=== PATIENT | female | born 1980 | race Hispanic/Latino ===

== ENCOUNTER 2017-07-16 12:35 | Observation (INO) | payer BC, OTHER ==
[~2017-07-16] VITALS: Ht 160 cm; Wt 83.9 kg
[~2017-07-16 12:35] MED LIST: TYL3 GT
[2017-07-16 13:59] LABS: APPEARANCE,URINE Cloudy (CLEAR); BILIRUBIN,URINE Negative (NEGATIVE); COLOR,URINE Dark Yellow (YELLOW); GLUCOSE, URINE (UA) Negative (NEGATIVE); KETONES,URINE Trace mg/dL (NEGATIVE); LEUKOCYTE ESTERASE ,URINE Negative (NEGATIVE); NITRATE,URINE Negative (NEGATIVE); OCCULT BLOOD,URINE Small (NEGATIVE); PH,URINE 5.5 (5.0-8.0); PROTEIN,URINE POS 1+ (NEGATIVE)
[2017-07-16 14:04] LABS: HCG,QUAL RESULT NEGATIVE (NEGATIVE)
[2017-07-16 14:07] LABS: BASOPHILS % (AUTO) 0.2 % (0.0-5.0); EOSINOPHILS % (AUTO) 0.1 % (0.0-8.0); HEMATOCRIT 40.5 % (36-48); LYMPHOCYTES % (AUTO) 6.9 % (21.0-51.0); MEAN CORPUSCULAR HEMOGLOBIN 25.6 pg (27.0-33.0); MEAN CORPUSCULAR HGB CONC 32.4 g/dL (32.0-36.0); NEUTROPHILS % (AUTO) 89.8 % (40.0-77.0); PLATELET COUNT (AUTO) 366 K/uL (130-400); RED BLOOD CELL COUNT(AUTO) 5.12 MIL/uL (4.00-5.50); RED CELL DISTRIBUTION WIDTH 15.1 % (11.0-15.5)
[2017-07-16] MEDS ORDERED: ONDANSETRON HCL MDV 20ML 2 MG/ML VIAL ONE (14:10)
[2017-07-16] MEDS ORDERED: KETOROLAC TROMETHAMINE 30MG/ML ONE (14:10)
[2017-07-16] MEDS ORDERED: SODIUM CHLORIDE 0.9% 1000ML 1,000 ML IV ONE (14:10)
[2017-07-16 14:11] LABS: BACTERIA,URINE Moderate /HPF (None Seen); RBC,URINE 0-1 /HPF (0-1); SQUAMOUS EPITHELIAL CELL,UR 0-2 /HPF (0-2); WBC,URINE None Seen /HPF (0-1)
[2017-07-16 14:12] LABS: AMORPHOUS SEDIMENT,UR Few /LPF (None Seen); MUCUS,URINE Many LPF (None Seen)
[2017-07-16 14:22] LABS: CREATININE 0.8 mg/dL (0.5-1.5)
[2017-07-16 14:28] LABS: BILIRUBIN,TOTAL 0.2 mg/dL (0.2-1.0)
[2017-07-16] MEDS ORDERED: MORPHINE SULFATE 4 MG/1ML SYG ONE (15:40)
[2017-07-16] MEDS ORDERED: ONDANSETRON HCL 4 MG/2 ML VIAL IVP PRN (18:00)
[2017-07-16] MEDS ORDERED: POTASSIUM CHLORIDE 10% ELIXIR 20 MEQ/15 ML UDCUP PO PRN (19:45)
[2017-07-16] MEDS ORDERED: POTASSIUM CHLORIDE 20 MEQ ERTAB PO PRN (19:45)
[2017-07-16] MEDS ORDERED: FAMOTIDINE/PF 20 MG/2 ML VIAL IV SCH (19:45)
[2017-07-16] MEDS ORDERED: POTASSIUM CHLORIDE 20MEQ/100ML 100 ML IV PRN (19:45)
[2017-07-16] MEDS ORDERED: LIDOCAINE HCL-MPF 1% 2ML VIAL IVP PRN (19:45)
[2017-07-16 21:15] VITALS: BP 127/79
[2017-07-16 21:22] VITALS: BP 127/79
[2017-07-16] MEDS: SODIUM CHLORIDE 0.9% 1000ML 1,000 ML IV SCH (21:34)
[2017-07-16] MEDS: ZOSYN 3.375GM+NS 50ML 50 ML IV SCH (22:11)
[2017-07-17 00:27] VITALS: BP 120/67
[2017-07-17 03:34] VITALS: BP 116/80
[2017-07-17 04:34] LABS: BASOPHILS % (AUTO) 0.6 % (0.0-5.0); EOSINOPHILS % (AUTO) 1.2 % (0.0-8.0); LYMPHOCYTES % (AUTO) 26.1 % (21.0-51.0); MEAN CORPUSCULAR HEMOGLOBIN 25.8 pg (27.0-33.0); MEAN CORPUSCULAR HGB CONC 32.7 g/dL (32.0-36.0); MONOCYTES % (AUTO) 8.8 % (3.0-13.0); NEUTROPHILS % (AUTO) 63.3 % (40.0-77.0); PLATELET COUNT (AUTO) 288 K/uL (130-400)
[2017-07-17 04:47] LABS: ALBUMIN 3.2 g/dL (3.5-5.0); BILIRUBIN,TOTAL 0.3 mg/dL (0.2-1.0); CREATININE 0.8 mg/dL (0.5-1.5); POTASSIUM 4.1 mmol/L (3.5-5.1); TOTAL PROTEIN, SERUM 7.3 g/dL (6.0-8.3)
[2017-07-17] MEDS: ZOSYN 3.375GM+NS 50ML 50 ML IV SCH (05:45)
[2017-07-17] MEDS: SODIUM CHLORIDE 0.9% 1000ML 1,000 ML IV SCH (05:46)
[2017-07-17 07:33] VITALS: BP 120/67
[2017-07-17 11:21] VITALS: BP 109/66
== END 2017-07-17 12:45 | disposition home or self-care (01) ==
LOC: EDH 12:35 → INTOOBSV 17:21 → EDHIP 17:21 → WSH 21:15
PROVIDERS: ADMIT Internal Medicine Nephrology; ATTEND Internal Medicine Nephrology
DX: K56.609 Unspecified intestinal obstruction, unspecified as to partial versus complete obstruction (principal); K42.9 Umbilical hernia without obstruction or gangrene; N20.0 Calculus of kidney; K43.9 Ventral hernia without obstruction or gangrene; Z90.49 Acquired absence of other specified parts of digestive tract
CPT/HCPCS: 36415 ×2; 71045; 74018; 74176; 80053 ×2; 81001; 81025; 83690; 85025 ×2; 87040 ×2; 87804 ×2; 96361 ×2; 96365; 96366 ×2; 96375; 99285; G0378 ×19; J1885; J2270; J2543 ×2; J3490; J7030 ×2

== ENCOUNTER 2018-05-30 07:31 | Inpatient (IN) | payer OTHER | END 2018-05-31 20:24 | disposition home or self-care (01) | LOC: EDH 07:31 → EDHIP 07:32 → 3BH 16:32 | DX: K42.0 Umbilical hernia with obstruction, without gangrene (principal) ==

== ENCOUNTER 2018-06-10 07:21 | Day surgery (SDC) | payer OTHER ==
[2018-06-04 10:45] VITALS: BP 122/86
[2018-06-04 11:29] LABS: CREATININE 0.8 mg/dL (0.5-1.5)
[2018-06-04 11:44] LABS: BASOPHILS % (AUTO) 0.7 % (0.0-5.0); EOSINOPHILS % (AUTO) 6.1 % (0.0-8.0); HEMATOCRIT 38.3 % (36-48); LYMPHOCYTES % (AUTO) 40.4 % (21.0-51.0); MEAN CORPUSCULAR HEMOGLOBIN 28.9 pg (27.0-33.0); MEAN CORPUSCULAR HGB CONC 33.8 g/dL (32.0-36.0); MEAN CORPUSCULAR VOLUME 85.5 fL (79-99); NEUTROPHILS % (AUTO) 45.8 % (40.0-77.0); NUCLEATED RED BLOOD CELLS 0.1 % (0.0-0.19); PLATELET COUNT (AUTO) 300 K/uL (130-400); RED BLOOD CELL COUNT(AUTO) 4.48 MIL/uL (4.00-5.50); RED CELL DISTRIBUTION WIDTH 13.9 % (11.0-15.5); WHITE BLOOD COUNT (AUTO) 6.5 K/uL (4.8-10.8)
[2018-06-05] MEDS: CEFAZOLIN SODIUM 1 GM VIAL IVP SCH (11:30)
[~2018-06-10] VITALS: Ht 166.4 cm; Wt 80.2 kg
[2018-06-10] VITALS (18 sets, daily range): BP systolic 100–135; BP diastolic 62–89
[2018-06-10] MEDS ORDERED: LACTATED RINGERS 1000ML 1,000 ML IV ONE (08:58)
[2018-06-10] MEDS ORDERED: GLYCOPYRROLATE 1 MG/5 ML SYRINGE ONE (09:47)
[2018-06-10] MEDS ORDERED: LIDOCAINE PF 2% 5ML ABBOJECT ONE (09:47)
[2018-06-10] MEDS ORDERED: MIDAZOLAM HCL 1 MG/ML 2ML VIAL ONE (09:48)
[2018-06-10] MEDS ORDERED: FENTANYL CITRATE PF 50 MCG/1 ML 2ML VIAL ONE (09:48)
[2018-06-10] MEDS ORDERED: NEOSTIGMINE 5MG/5ML SYR IV ONE (09:48)
[2018-06-10] MEDS ORDERED: ROCURONIUM 10MG/1ML SYR 10 MG/ML ML ONE (09:48)
[2018-06-10] MEDS ORDERED: PROPOFOL 10 MG/ML 20ML VIAL IV ONE (09:49)
[2018-06-10] MEDS: CEFAZOLIN SODIUM 1 GM VIAL IVP SCH (10:23)
[2018-06-10] MEDS ORDERED: FENTANYL CITRATE PF 50 MCG/1 ML 5ML AMP IV ONE (10:39)
[2018-06-10] MEDS: BUPIVACAINE/PF 0.5% 10ML VIAL ONE (11:00)
[2018-06-10] MEDS ORDERED: MEPERIDINE-PF 25 MG/ML SYG ONE ×2 (11:35→11:49)
[2018-06-10] MEDS ORDERED: KETOROLAC TROMETHAMINE 30MG/ML ONE (11:35)
[2018-06-10] MEDS ORDERED: PROMETHAZINE HCL 25 MG/ML 1ML AMPULE IM SCH (13:43)
[2018-06-10] MEDS ORDERED: MEPERIDINE-PF 25 MG/ML SYG IVP SCH (13:44)
--- NOTE | 2018-06-10 14:17 | NUR ---
CALLED DOCTOR MARIFER ARZATE AND ADVISED HIM OF PATIENT HAVING NAUSEA AND PAIN LEVEL 8 OUT OF 10, PT REQUESTED TO STAY OVER NIGHT, PT STABLE AND PER DOCTOR ARZATE PT OKAY TO GO HOME AND FOLLOW UP IN HIS OFFICE.
== END 2018-06-10 14:48 | disposition home or self-care (01) ==
LOC: DAH 07:21
PROVIDERS: ATTEND Surgery
DX: K43.2 Incisional hernia without obstruction or gangrene (principal); Z98.890 Other specified postprocedural states; Z79.899 Other long term (current) drug therapy; K21.9 Gastro-esophageal reflux disease without esophagitis
CPT/HCPCS: 36415; 49560; 49568; 80048; 84703; 85025; A4218; A4450; A4452; C1781; J0690; J1885; J2001; J2175 ×3; J2250; J2550; J2704; J2710; J3010; J3490 ×2; J7120 ×2

== ENCOUNTER 2019-12-02 02:50 | Emergency (ER) | payer OTHER ==
[2019-12-02 03:32] LABS: APPEARANCE,URINE Clear (CLEAR); BILIRUBIN,URINE Negative (NEGATIVE); COLOR,URINE Yellow (YELLOW); GLUCOSE, URINE (UA) Negative (NEGATIVE); KETONES,URINE Negative (NEGATIVE); LEUKOCYTE ESTERASE ,URINE Trace (NEGATIVE); NITRATE,URINE Negative (NEGATIVE); OCCULT BLOOD,URINE Large (NEGATIVE); PROTEIN,URINE Trace mg/dL (NEGATIVE)
[2019-12-02 03:43] LABS: BASOPHILS % (AUTO) 0.8 % (0.0-5.0); EOSINOPHILS % (AUTO) 8.3 % (0.0-8.0); HEMATOCRIT 28.3 % (36-48); LYMPHOCYTES % (AUTO) 24.8 % (21.0-51.0); MEAN CORPUSCULAR HEMOGLOBIN 17.7 pg (27.0-33.0); MEAN CORPUSCULAR HGB CONC 27.6 g/dL (32.0-36.0); MEAN CORPUSCULAR VOLUME 64.3 fL (79-99); MONOCYTES % (AUTO) 6.6 % (3.0-13.0); NEUTROPHILS % (AUTO) 59.4 % (40.0-77.0); PLATELET COUNT (AUTO) 419 K/uL (130-400); RED CELL DISTRIBUTION WIDTH 19.5 % (11.0-15.5); WHITE BLOOD COUNT (AUTO) 7.6 K/uL (4.8-10.8)
[2019-12-02 03:53] LABS: CREATININE 0.7 mg/dL (0.5-1.5); POTASSIUM 3.6 mmol/L (3.5-5.1)
[2019-12-02 03:59] LABS: BILIRUBIN,TOTAL 0.1 mg/dL (0.2-1.0); TOTAL PROTEIN, SERUM 8.4 g/dL (6.0-8.3)
[2019-12-02 04:14] LABS: WBC,URINE 0-1 /HPF (0-1)
[2019-12-02 04:15] LABS: BACTERIA,URINE Few /HPF (None Seen); RBC,URINE 26-50 /HPF (0-1)
[2019-12-02] MEDS ORDERED: CEFTRIAXONE SODIUM 1 GM ONE (05:52)
[2019-12-02] MEDS ORDERED: KETOROLAC TROMETHAMINE 30MG/ML ONE (05:52)
[2019-12-02] MEDS ORDERED: CYCLOBENZAPRINE HCL 10 MG TABLET ONE (05:52)
== END 2019-12-02 06:17 | disposition home or self-care (01) ==
LOC: EDH 02:50
DX: N39.0 Urinary tract infection, site not specified (principal); M54.5 Low back pain; M62.838 Other muscle spasm; D27.0 Benign neoplasm of right ovary; Z90.49 Acquired absence of other specified parts of digestive tract
CPT/HCPCS: 36415; 74176; 80053; 81001; 81025; 83690; 85025; 96361; 96374; 96375; 99284; J0696; J1885

== ENCOUNTER → 2019-12-04 | Outpatient (CLI) | payer OTHER ==
[2019-12-04 12:18] LABS: EOSINOPHILS % (AUTO) 6.7 % (0.0-8.0); HEMATOCRIT 27.3 % (36-48); LYMPHOCYTES % (AUTO) 32.2 % (21.0-51.0); MEAN CORPUSCULAR HEMOGLOBIN 18.1 pg (27.0-33.0); MEAN CORPUSCULAR HGB CONC 28.2 g/dL (32.0-36.0); MEAN CORPUSCULAR VOLUME 64.1 fL (79-99); MONOCYTES % (AUTO) 6.1 % (3.0-13.0); NEUTROPHILS % (AUTO) 53.8 % (40.0-77.0); PLATELET COUNT (AUTO) 400 K/uL (130-400); RED BLOOD CELL COUNT(AUTO) 4.26 MIL/uL (4.00-5.50); RED CELL DISTRIBUTION WIDTH 19.4 % (11.0-15.5); WHITE BLOOD COUNT (AUTO) 6.1 K/uL (4.8-10.8)
[2019-12-04 12:36] LABS: ALBUMIN 3.7 g/dL (3.5-5.0); BILIRUBIN,TOTAL 0.2 mg/dL (0.2-1.0); CREATININE 0.7 mg/dL (0.5-1.5); POTASSIUM 4.1 mmol/L (3.5-5.1); THYROID STIMULATING HORMONE 0.58 uIU/mL (0.36-3.74); TOTAL PROTEIN, SERUM 8.1 g/dL (6.0-8.3)
== END | disposition home or self-care (01) ==
LOC: LAB 11:46
PROVIDERS: ATTEND Family Medicine
DX: Z00.00 Encounter for general adult medical examination without abnormal findings (principal)
CPT/HCPCS: 36415; 80053; 80061; 82306; 84443; 85025; 93005

== ENCOUNTER → 2019-12-05 | Outpatient (CLI) | payer OTHER | END | disposition home or self-care (01) | LOC: RAH 13:57 | PROVIDERS: ATTEND Family Medicine | DX: K11.1 Hypertrophy of salivary gland (principal); R22.0 Localized swelling, mass and lump, head | CPT/HCPCS: 76536 ==

== ENCOUNTER → 2020-01-05 | Outpatient (CLI) | payer OTHER | END | disposition home or self-care (01) | LOC: LAB 11:39 | PROVIDERS: ATTEND Obstetrics & Gynecology | DX: N91.2 Amenorrhea, unspecified (principal) | CPT/HCPCS: 36415; 82670; 83001; 83002; 84146; 84402; 84403; 84439; 84481 ==

== ENCOUNTER 2020-03-04 08:36 | Day surgery (SDC) | payer OTHER ==
[2020-03-01 08:31] LABS: BASOPHILS % (AUTO) 0.8 % (0.0-5.0); EOSINOPHILS % (AUTO) 4.9 % (0.0-8.0); HEMATOCRIT 28.4 % (36-48); LYMPHOCYTES % (AUTO) 29.7 % (21.0-51.0); MEAN CORPUSCULAR HEMOGLOBIN 19.1 pg (27.0-33.0); MEAN CORPUSCULAR HGB CONC 28.9 g/dL (32.0-36.0); MONOCYTES % (AUTO) 6.6 % (3.0-13.0); NEUTROPHILS % (AUTO) 57.7 % (40.0-77.0); PLATELET COUNT (AUTO) 350 K/uL (130-400); RED CELL DISTRIBUTION WIDTH 20.7 % (11.0-15.5); WHITE BLOOD COUNT (AUTO) 6.4 K/uL (4.8-10.8)
[2020-03-03 09:14] VITALS: BP 125/71
[~2020-03-04] VITALS: Ht 160 cm; Wt 77.1 kg
[2020-03-04] VITALS (21 sets, daily range): BP systolic 96–123; BP diastolic 56–70
[~2020-03-04 08:36] MED LIST changes: +CALDOLOR 800MG+NS 250ML 250 ML IV PRN; +CEFAZOLIN SODIUM 1 GM VIAL IVP ONE; -TYL3 GT
[2020-03-04] MEDS ORDERED: BUPIVACAINE/PF 0.25% 30ML VIAL IJ ONE (09:09)
[2020-03-04] MEDS ORDERED: SUCCINYLCHOLINE CHLORIDE 20 MG/ML 10 ML VIAL ONE (09:23)
[2020-03-04] MEDS ORDERED: MIDAZOLAM HCL 1 MG/ML 2ML VIAL ONE (09:24)
[2020-03-04] MEDS ORDERED: PROPOFOL 10 MG/ML 20ML VIAL IV ONE (09:24)
[2020-03-04] MEDS ORDERED: LIDOCAINE PF 100MG/5ML (2%) SYRINGE 5ML ONE (09:24)
[2020-03-04] MEDS ORDERED: FENTANYL CITRATE PF 50 MCG/1 ML 2ML VIAL ONE (09:24)
[2020-03-04] MEDS ORDERED: DEXAMETHASONE SOD PHOSPHATE 4 MG/ML 1ML VIAL ONE (09:24)
[2020-03-04] MEDS ORDERED: ONDANSETRON 4MG INJ ONE ×2 (09:25→12:51)
[2020-03-04] MEDS ORDERED: LACTATED RINGERS 1000ML 1,000 ML IV ONE (09:40)
[2020-03-04] MEDS ORDERED: CEFAZOLIN SODIUM 1 GM VIAL ONE (09:40)
[2020-03-04] MEDS ORDERED: EPHEDRINE SULFATE 50 MG/ML AMPULE ONE (10:39)
[2020-03-04] MEDS ORDERED: ALBUMIN (HUMAN) 5% 250 ML IV ONE (10:40)
[2020-03-04] MEDS ORDERED: ROCURONIUM 10MG/1ML SYR 10 MG/ML ML ONE (10:42)
[2020-03-04] MEDS ORDERED: GLYCOPYRROLATE 1 MG/5 ML SYRINGE ONE (10:42)
[2020-03-04] MEDS ORDERED: NEOSTIGMINE 5MG/5ML SYR IV ONE (10:43)
[2020-03-04] MEDS ORDERED: MEPERIDINE-PF 25 MG/ML SYG ONE (12:30)
[2020-03-04] MEDS ORDERED: METOCLOPRAMIDE 10 MG/2 ML VIAL ONE (12:51)
[2020-03-04] MEDS ORDERED: ACETAMINOPHEN WITH CODEINE 1 TAB TAB ONE (14:11)
== END 2020-03-04 15:00 | disposition home or self-care (01) ==
LOC: SUH 08:36 → DAH 08:36 → SUH 15:00
PROVIDERS: ATTEND Obstetrics & Gynecology
DX: N92.1 Excessive and frequent menstruation with irregular cycle (principal); D50.0 Iron deficiency anemia secondary to blood loss (chronic); D27.0 Benign neoplasm of right ovary; Z20.828 Contact with and (suspected) exposure to other viral communicable diseases; E66.9 Obesity, unspecified
CPT/HCPCS: 36415 ×2; 58563; 58662; 84703; 85025; 86850 ×2; 86900 ×2; 86901 ×2; A4215; A4221; A4222; A4223; A4344; A4355; A4510; A4600; A4649 ×2; A4663; A6260; C1769 ×2; C9803; G0168; J0330; J0690; J1100; J1741; J2001; J2175; J2250; J2405 ×2; J2704; J2710; J2765; J3010; J3490 ×3; J7030; J7120; P9045; U0003

== ENCOUNTER → 2021-04-11 | Outpatient (CLI) | payer OTHER | END | disposition home or self-care (01) | LOC: RAH 08:32 | PROVIDERS: ATTEND Family Medicine | DX: K76.0 Fatty (change of) liver, not elsewhere classified (principal); Z90.49 Acquired absence of other specified parts of digestive tract | CPT/HCPCS: 76700 ==

== ENCOUNTER 2021-09-10 11:32 | Emergency (ER) | payer OTHER ==
[~2021-09-10] VITALS: Ht 162.6 cm; Wt 86.2 kg
[2021-09-10] MEDS ORDERED: UNASYN 3GM VIAL IV STA (11:53)
[2021-09-10] MEDS ORDERED: KETOROLAC 15MG/ML VIAL (15MG/ML) IV ONE (12:00)
[2021-09-10] MEDS ORDERED: DEXAMETHASONE SOD PHOSPHATE 4 MG/ML 1ML VIAL IVP ONE (12:00)
[2021-09-10 12:43] LABS: BASOPHILS % (AUTO) 0.2 % (0.0-5.0); EOSINOPHILS % (AUTO) 1.2 % (0.0-8.0); HEMATOCRIT 42.8 % (36-48); LYMPHOCYTES % (AUTO) 14.7 % (21.0-51.0); MEAN CORPUSCULAR HEMOGLOBIN 29.6 pg (27.0-33.0); MEAN CORPUSCULAR HGB CONC 34.1 g/dL (32.0-36.0); MEAN CORPUSCULAR VOLUME 86.6 fL (79-99); MONOCYTES % (AUTO) 7.5 % (3.0-13.0); NEUTROPHILS % (AUTO) 76.1 % (40.0-77.0); PLATELET COUNT (AUTO) 267 K/uL (130-400); RED BLOOD CELL COUNT(AUTO) 4.94 MIL/uL (4.00-5.50); RED CELL DISTRIBUTION WIDTH 12.6 % (11.0-15.5); WHITE BLOOD COUNT (AUTO) 9.9 K/uL (4.8-10.8)
[2021-09-10 14:27] LABS: CARBON DIOXIDE 24 mmol/L (21-32); CHLORIDE 105 mmol/L (101-111); CREATININE 0.8 mg/dL (0.5-1.5); GLOMERULAR FILTR. RATE CALC 85 mL/min (>60); GLUCOSE,RANDOM 122 mg/dL (70-105); POTASSIUM 3.7 mmol/L (3.5-5.1); SODIUM SERUM 141 mmol/L (136-145); UREA NITROGEN, BLOOD 9 mg/dL (7-18)
[2021-09-10] MEDS ORDERED: IOHEXOL-350 50ML VIAL IV ONE (14:29)
[2021-09-10 14:34] LABS: ALANINE AMINOTRANSFERASE 36 U/L (12-78); ALBUMIN 3.9 g/dL (3.5-5.0); ASPARTATE AMINOTRANSFERASE 17 U/L (10-37); TOTAL PROTEIN, SERUM 8.1 g/dL (6.0-8.3)
[2021-09-10] MEDS ORDERED: METH4TAB3 PO (16:50)
[2021-09-10] MEDS ORDERED: IBUP-2070 PO (16:50)
[2021-09-10] MEDS ORDERED: AMOX1TAB16 PO (16:50)
[2021-09-10 18:00] VITALS: BP 123/76
== END 2021-09-10 18:11 | disposition home or self-care (01) ==
LOC: EDH 11:32
DX: K04.7 Periapical abscess without sinus (principal); L03.211 Cellulitis of face; K02.9 Dental caries, unspecified; Z79.1 Long term (current) use of non-steroidal anti-inflammatories (NSAID); Z79.52 Long term (current) use of systemic steroids
CPT/HCPCS: 99285; 96365; 70487; 96375; 80053; 85025; 36415; 76536; J1100; J0295; J1885; Q9967

== ENCOUNTER → 2021-12-09 | Outpatient (CLI) | payer OTHER ==
[~2021-12-09] MED LIST changes: +AMOX1TAB16 PO; -CALDOLOR 800MG+NS 250ML 250 ML IV PRN; -CEFAZOLIN SODIUM 1 GM VIAL IVP ONE; +IBUP-2070 PO; +METH4TAB3 PO
== END | disposition home or self-care (01) ==
LOC: LAB 08:59
PROVIDERS: ATTEND Internal Medicine
DX: M79.642 Pain in left hand (principal); M79.641 Pain in right hand

== ENCOUNTER → 2023-07-27 | Outpatient (CLI) | payer OTHER | END | disposition home or self-care (01) | LOC: RAH 10:51 | PROVIDERS: ATTEND Family Medicine | DX: K43.9 Ventral hernia without obstruction or gangrene (principal) | CPT/HCPCS: 76856 ==

== ENCOUNTER → 2023-08-31 | Outpatient (CLI) | payer OTHER | END | disposition home or self-care (01) | LOC: RAH 13:33 | PROVIDERS: ATTEND Nurse Practitioner Family | DX: M27.40 Unspecified cyst of jaw (principal); G44.82 Headache associated with sexual activity | CPT/HCPCS: 70551 ==

== ENCOUNTER → 2024-06-03 | Outpatient (CLI) | payer OTHER ==
[2024-06-03 11:08] LABS: HEMOGLOBIN A1C 6.3 % (4.0-6.0)
[2024-06-03 11:23] LABS: BASOPHILS # (AUTO) 0.04 K/uL (0.00-0.20); BASOPHILS % (AUTO) 0.7 % (0.0-5.0); EOSINOPHILS % (AUTO) 1.8 % (0.0-8.0); HEMATOCRIT 41.7 % (36-48); IMMATURE GRANULOCYTE ABSOLUTE 0.01 K/uL (0-1); LYMPHOCYTES # (AUTO) 1.9 K/uL (1.0-4.8); LYMPHOCYTES % (AUTO) 34.3 % (21.0-51.0); MEAN CORPUSCULAR HGB CONC 33.6 g/dL (32.0-36.0); MEAN CORPUSCULAR VOLUME 89.3 fL (79-99); MONOCYTES # (AUTO) 0.4 K/uL (0.1-1.0); MONOCYTES % (AUTO) 6.4 % (3.0-13.0); NEUTROPHILS # (AUTO) 3.2 K/uL (1.8-7.7); NEUTROPHILS % (AUTO) 56.6 % (40.0-77.0); PLATELET COUNT (AUTO) 262 K/uL (130-400); RED BLOOD CELL COUNT(AUTO) 4.67 MIL/uL (4.00-5.50); RED CELL DISTRIBUTION WIDTH 12.6 % (11.0-15.5); WHITE BLOOD COUNT (AUTO) 5.6 K/uL (4.8-10.8)
[2024-06-03 11:25] LABS: ALBUMIN 3.6 g/dL (3.5-5.0); BILIRUBIN,TOTAL 0.3 mg/dL (0.2-1.0); CREATININE 0.7 mg/dL (0.5-1.0); POTASSIUM 4.1 mmol/L (3.5-5.1); TOTAL PROTEIN, SERUM 7.8 g/dL (6.0-8.3)
[2024-06-03 12:28] LABS: ERYTHROCYTE SEDIMENTATION RATE 11 MM/HR (0-20)
--- NOTE | 2024-06-03 12:49 | HMCIMG ---
LUMBAR SPINE 4+VWS HISTORY: Low back pain COMPARISON: None FINDINGS: 5 images of the lumbar spine were obtained including the oblique views. Mild disc space narrowing is seen at L5-S1 level. There is straightening of normal lordotic curvature which may be related to muscle spasm or positioning. No loss of vertebral height is seen. No fracture or dislocation is seen. Degenerative changes are seen. IMPRESSION: 1. No fracture is seen.
[2024-06-04 11:13] LABS: ANTI-SCLERODERMA 70 <0.2 AI (0.0-0.9)
== END | disposition home or self-care (01) ==
LOC: RAH 10:06
PROVIDERS: ATTEND Physician Assistant Medical
DX: M47.816 Spondylosis without myelopathy or radiculopathy, lumbar region (principal); M48.07 Spinal stenosis, lumbosacral region; M54.50 Low back pain, unspecified; R73.9 Hyperglycemia, unspecified; M06.9 Rheumatoid arthritis, unspecified; M35.00 Sjogren syndrome, unspecified; R53.83 Other fatigue
CPT/HCPCS: 36415; 72110; 80053; 80061; 82306; 83036; 84443; 85025; 85651; 86038; 86140; 86215; 86235; 86431

== ENCOUNTER → 2024-06-27 | Outpatient (CLI) | payer OTHER | END | disposition home or self-care (01) | LOC: RAH 12:12 | PROVIDERS: ATTEND Physician Assistant Medical | DX: Z12.31 Encounter for screening mammogram for malignant neoplasm of breast (principal) | CPT/HCPCS: 77067 ==

== ENCOUNTER → 2024-07-15 | Outpatient (CLI) | payer OTHER ==
--- NOTE | 2024-07-15 15:36 | HMCIMG ---
MR SPINAL CANAL, LUMBAR WO CON HISTORY: Spondylosis COMPARISON: None TECHNIQUE: MRI of the lumbar spine was performed utilizing multiple pulse sequences in axial , coronal and sagittal plane. Patient was not given contrast through intravenous route. FINDINGS: No abnormal signal intensity is seen of the visualized bony structure. No loss of vertebral height is seen. There is straightening of normal lumbar curvature which may be related to muscle spasm or positioning. Degenerative disc signals are present at L4-5 and L5-S1 levels. Visualized distal conus is unremarkable. At the L4-5 level, there is central disc protrusion/herniation with bilateral ligamentum flavum hypertrophy causing anterior thecal sac compression without associated stenosis. The thecal sac measures approximately 6.7 mm in its anterior posterior dimension. At the L5-S1 level, there is central disc protrusion/herniation with mild bilateral ligamentum flavum hypertrophy causing anterior thecal sac compression with bilateral lateral recess stenosis without associated neural foraminal stenosis. The thecal sac measures approximately 7 mm in its anterior posterior dimension. IMPRESSION: 1. 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
== END | disposition home or self-care (01) ==
LOC: RAH 14:46
PROVIDERS: ATTEND Family Medicine
DX: M47.817 Spondylosis without myelopathy or radiculopathy, lumbosacral region (principal); M48.07 Spinal stenosis, lumbosacral region; M51.369 Other intervertebral disc degeneration, lumbar region without mention of lumbar back pain or lower extremity pain; M62.830 Muscle spasm of back
CPT/HCPCS: 72148

== ENCOUNTER → 2024-09-24 | Outpatient (CLI) | payer OTHER ==
[2024-09-24 09:52] LABS: IMMATURE GRANULOCYTE ABSOLUTE 0.01 K/uL (0-1); NUCLEATED RED BLOOD CELLS 0.0 % (0.0-0.19); PLATELET COUNT (AUTO) 274 K/uL (130-400); RED BLOOD CELL COUNT(AUTO) 4.87 MIL/uL (4.00-5.50); RED CELL DISTRIBUTION WIDTH 12.5 % (11.0-15.5); WHITE BLOOD COUNT (AUTO) 6.2 K/uL (4.8-10.8)
[2024-09-24 10:04] LABS: ASPARTATE AMINOTRANSFERASE 23.0 U/L (10-37); CREATININE 0.6 mg/dL (0.5-1.0); GLOMERULAR FILTR. RATE CALC 116.0 mL/min (>90); GLUCOSE,RANDOM 134.0 mg/dL (70-105); LDL DIRECT 118.0 mg/dL (0-99); SODIUM SERUM 142.0 mmol/L (136-145); TOTAL PROTEIN, SERUM 7.4 g/dL (6.0-8.3); UREA NITROGEN, BLOOD 9.0 mg/dL (7-18)
== END | disposition home or self-care (01) ==
LOC: LAB 09:16
PROVIDERS: ATTEND Physician Assistant Medical
DX: E78.5 Hyperlipidemia, unspecified (principal); R73.03 Prediabetes
CPT/HCPCS: 36415; 80053; 80061; 82306; 83036; 85025